=== PATIENT | male | born 1945 | race Caucasian/White ===

== ENCOUNTER → 2017-02-28 | Outpatient (REF) | payer MEDICARE ==
[2017-02-28 16:35] LABS: CALCIUM LEVEL 8.8 MG/DL (8.8-10.2); CREATININE FOR GFR 1.46 MG/DL (0.70-1.30); GLOMERULAR FILTRATION RATE 50.4 (>42); POTASSIUM SERUM 4.5 MEQ/L (3.5-5.1)
== END ==
LOC: M SFHCLACO 08:04
PROVIDERS: ATTEND Physician Assistant
DX: I10 Essential (primary) hypertension (principal)

== ENCOUNTER → 2017-04-04 | Outpatient (REF) | payer MEDICARE | LOC: M SFHCLACO 07:55 | PROVIDERS: ATTEND Physician Assistant | DX: E78.2 Mixed hyperlipidemia (principal); I10 Essential (primary) hypertension; E87.6 Hypokalemia; Z53.8 Procedure and treatment not carried out for other reasons ==

== ENCOUNTER → 2017-04-11 | Outpatient (REF) | payer MEDICARE ==
[2017-04-11 16:41] LABS: ALBUMIN 3.7 GM/DL (3.2-5.2); BILIRUBIN,TOTAL 0.6 MG/DL (0.2-1.0); CALCIUM LEVEL 9.1 MG/DL (8.8-10.2); CREATININE FOR GFR 1.99 MG/DL (0.70-1.30); GLOMERULAR FILTRATION RATE 35.1 (>42); POTASSIUM SERUM 4.2 MEQ/L (3.5-5.1); TOTAL PROTEIN 7.4 GM/DL (6.4-8.2)
== END ==
LOC: M LABDRWLA 15:39
PROVIDERS: ATTEND Physician Assistant
DX: E78.2 Mixed hyperlipidemia (principal); I10 Essential (primary) hypertension; E87.6 Hypokalemia

== ENCOUNTER → 2018-01-11 | Outpatient (REF) | payer MEDICARE ==
[2018-01-11 15:15] LABS: ALBUMIN 3.8 GM/DL (3.2-5.2); ALBUMIN/GLOBULIN RATIO 0.93 (1.00-1.93); ALKALINE PHOSPHATASE 78 U/L (45-117); ALT/SGPT 16 U/L (12-78); ANION GAP 10 MEQ/L (8-16); AST/SGOT 16 U/L (7-37); BILIRUBIN,TOTAL 0.5 MG/DL (0.2-1.0); BLOOD UREA NITROGEN 49 MG/DL (7-18); CALCIUM LEVEL 9.3 MG/DL (8.8-10.2); CARBON DIOXIDE LEVEL 29 MEQ/L (21-32); CHLORIDE LEVEL 100 MEQ/L (98-107); CHOLESTEROL LEVEL 149 MG/DL (<200); CHOLESTEROL RISK RATIO 4.138 (<5); CREATININE FOR GFR 1.74 MG/DL (0.70-1.30); GLUCOSE, FASTING 89 MG/DL (70-100); HDL CHOLESTEROL 36 MG/DL (>40); LDL CHOLESTEROL 56.2 MG/DL (<100); NON-HDL-C 113 MG/DL; POTASSIUM SERUM 4.6 MEQ/L (3.5-5.1); SODIUM LEVEL 139 MEQ/L (136-145); TOTAL PROTEIN 7.9 GM/DL (6.4-8.2); TRIGLYCERIDES LEVEL 284 MG/DL (<150)
== END ==
LOC: M SFHCLACO 09:28
DX: E78.2 Mixed hyperlipidemia (principal); I10 Essential (primary) hypertension; E87.6 Hypokalemia
CPT/HCPCS: 80053

== ENCOUNTER 2019-01-08 12:56 | Emergency (ER) | payer MEDICARE, OTHER ==
[~2019-01-08] VITALS: Ht 172.7 cm; Wt 106.2 kg
[2019-01-08] MEDS: IPRATROPIUM 0.5MG/ALBUTEROL 2.5MG INH SOL UD 3ML (DUONEB)(J7620) NEB PRN ×2 (13:10→13:31)
[2019-01-08] MEDS ORDERED: methylPREDNISolone INJ 125 MG/2 ML VIAL (J2930) IV ONE (13:15)
[2019-01-08] MEDS ORDERED: TRIA37.5 PO (13:21)
[2019-01-08] MEDS ORDERED: ECOT81TA5 PO (13:21)
[2019-01-08] MEDS ORDERED: GABA-843 PO (13:21)
[2019-01-08] MEDS ORDERED: PRAV20TA2 PO (13:21)
[2019-01-08] MEDS ORDERED: PRED5TA PO (13:21)
[2019-01-08] MEDS ORDERED: OXYC-517 PO (13:21)
[2019-01-08] MEDS ORDERED: FURO40TA2 PO (13:21)
[2019-01-08] MEDS ORDERED: TIZA4TAB4 PO (13:21)
[2019-01-08] MEDS ORDERED: HYDR-3719 PO (13:21)
[2019-01-08] MEDS ORDERED: CITA40TA4 PO (13:21)
[2019-01-08] MEDS ORDERED: KLOR20TA42 PO (13:21)
[2019-01-08 13:48] LABS: BASO % 0.2 % (0.0-1.0); EOS # 0.1 10^3/uL (0.0-0.50); HEMATOCRIT 34.7 % (42.0-52.0); LYMPH # 1.2 10^3/uL (1.5-4.5); LYMPH % 12.7 % (24.0-44.0); MEAN CORPUSCULAR HEMOGLOBIN 30.2 pg (27.0-33.0); MEAN CORPUSCULAR HGB CONC 31.7 g/dl (32.0-36.5); MEAN CORPUSCULAR VOLUME 95.3 fl (80.0-96.0); MONO # 0.6 10^3/uL (0.0-0.8); MONO % 6.1 % (0.0-5.0); NEUTROPHILS # 7.5 10^3/uL (1.8-7.7); NEUTROPHILS % 79.6 % (36.0-66.0); PLATELET COUNT, AUTOMATED 323 10^3/uL (150-450); RED BLOOD COUNT 3.64 10^6/uL (4.30-6.10); WHITE BLOOD COUNT 9.4 10^3/uL (4.0-10.0)
[2019-01-08 13:56] LABS: INR 1.19; PROTHROMBIN TIME 14.8 SECONDS (11.8-14.0)
[2019-01-08 13:57] LABS: PARTIAL THROMBOPLASTIN TIME 39.4 SECONDS (25.0-38.4)
--- NOTE | 2019-01-08 14:05 | ECGEPIP ---
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
[2019-01-08 14:18] LABS: ALT/SGPT 18 U/L (12-78); BILIRUBIN,DIRECT 0.2 MG/DL (0.0-0.2); BILIRUBIN,TOTAL 0.6 MG/DL (0.2-1.0); BLOOD UREA NITROGEN 22 MG/DL (7-18); CALCIUM LEVEL 8.3 MG/DL (8.8-10.2); CARBON DIOXIDE LEVEL 30 MEQ/L (21-32); CHLORIDE LEVEL 104 MEQ/L (98-107); CK-MB VALUE MASS 5.5 NG/ML (<3.6); CPK CREATINE PHOSPHOKINASE 210 U/L (39-308); CREATININE FOR GFR 1.02 MG/DL (0.70-1.30); FREE T4 1.38 NG/DL (0.76-1.46); GLOMERULAR FILTRATION RATE > 60.0 (>42); GLUCOSE, FASTING 87 MG/DL (70-100); MB/CK RELATIVE INDEX 2.62 (< OR =4); NT-PRO BNP 650 PG/ML (<450); POTASSIUM SERUM 4.1 MEQ/L (3.5-5.1); SODIUM LEVEL 139 MEQ/L (136-145); TOTAL PROTEIN 6.9 GM/DL (6.4-8.2); TROPONIN I < 0.02 NG/ML (< 0.10)
--- NOTE | 2019-01-08 14:30 | REP ---
Clinical: Bilateral lower extremity pain . Technique: Dickerson scale and color Doppler evaluation using linear high frequency transducer. Findings: Ultrasound examination of the right and left lower extremity deep venous structures from the common femoral vein to the popliteal vein demonstrates normal compressibility flow and wave patterns in response to respiration and augmentation. There is no evidence for deep venous thrombosis. Impression: No evidence for deep venous thrombosis. Electronically Signed by Robbie Kimble MD 01/08/2019 02:21 P
[2019-01-08] MEDS ORDERED: ISOVUE-370 76% 100ML VIAL (Q9967) As Ordered ONE (14:47)
--- NOTE | 2019-01-08 14:58 | REP ---
Clinical: Chest pain. Technique: PA and lateral. Comparison: 08/17/2011. 08/14/2015. Findings: A large bilobed mass in the right lung measures approximately 12 cm in craniocaudal length. Mild cardiomegaly. No obvious effusion. No pneumothorax. Left hemithorax is actively clear. Skeletal structures grossly intact. Impression: A large bilobed mass in the right lung consistent with malignancy. Electronically Signed by Robbie Kimble MD 01/08/2019 02:50 P
[2019-01-08 16:41] VITALS: O2SAT 97
[2019-01-08] MEDS ORDERED: PRED20TA PO (16:47)
[2019-01-08 17:09] VITALS: BP 116/69
--- NOTE | 2019-01-08 17:45 | REP ---
REASON: Hypoxia and chest pain. History of lung carcinoma. COMPARISON EXAMINATION: Standard non-contrast enhanced chest CT of 12/30/2015 which is the latest prior. CONTRAST: 100 mL Isovue-370. There is excellent visualization of the pulmonary arterial vasculature. There are no focal filling defects present that would be considered consistent with pulmonary emboli. There are no pleural or pericardial effusions. There is a large right hilar mass. Which measures 11 x 10.8 x 6.6 cm. The imaged upper abdomen shows multiple left renal cysts. The imaged osseous structures show them to be within normal limits for the patient's age. In addition to the large right hilar mass the lung prakash also show honeycomb lung surrounding the mass which is predominately in the right upper lobe. There is also emphysematous change seen throughout both lungs. No additional abnormal nodules are evident. IMPRESSION:1. There is no evidence of a pulmonary embolus. 2. Large right lung mass as described above. Electronically Signed by Keagan Henning DO 01/08/2019 06:34 P
== END 2019-01-08 17:31 | disposition home or self-care (01) ==
LOC: EDBD 12:56 → M ED 12:56
DX: J44.1 Chronic obstructive pulmonary disease with (acute) exacerbation (principal); I10 Essential (primary) hypertension; C34.90 Malignant neoplasm of unspecified part of unspecified bronchus or lung; M19.90 Unspecified osteoarthritis, unspecified site; F33.9 Major depressive disorder, recurrent, unspecified; R09.02 Hypoxemia; Z79.899 Other long term (current) drug therapy; Z79.82 Long term (current) use of aspirin; Z88.0 Allergy status to penicillin; F17.210 Nicotine dependence, cigarettes, uncomplicated
CPT/HCPCS: 71046; 71275; 80048; 80076; 82550; 82553; 82803; 83880; 84439; 84443; 84484; 85025; 85610; 85730; 93005; 93041; 93970; 96374; 99285; J2930; Q9967